=== PATIENT | male | born 1950 | race Caucasian/White ===

== ENCOUNTER 2017-04-21 08:51 | Inpatient (IN) | payer OTHER, MEDICARE ==
[~2017-04-21] VITALS: Ht 175.3 cm; Wt 86.7 kg
[2017-04-23] MEDS ORDERED: ACETAMINOPHEN TAB 650MG DOSE (2X325MG) PO PRN (14:15)
[2017-04-23] MEDS ORDERED: MAALOX 30 ML SUSP *UDC PO PRN (14:15)
[2017-04-23] MEDS ORDERED: MOM 30ML SUSPENSION UDC PO PRN (14:15)
[2017-04-23] MEDS ORDERED: FLEET ENEMA PR PRN (14:15)
[2017-04-23 16:30] VITALS: BP 158/90
[2017-04-23] MEDS ORDERED: ATOR80TA59 PO (17:17)
[2017-04-23] MEDS ORDERED: ELIQ5TAB PO (17:17)
[2017-04-23] MEDS ORDERED: KEPP1TAB PO (17:17)
[2017-04-23] MEDS ORDERED: DILA100C PO (17:17)
[2017-04-23] MEDS ORDERED: DILT300C43 PO (17:17)
[2017-04-23 20:30] VITALS: BP 121/80
[2017-04-23] MEDS: APIXABAN 5 MG TAB (ELIQUIS) PO SCH (21:15)
[2017-04-23] MEDS: PHENYTOIN ER 100 MG CAP PO SCH (21:15)
[2017-04-23] MEDS: levETIRAcetam 250MG TABLET (KEPPRA) PO SCH (21:15)
[2017-04-24 05:45] VITALS: BP 128/76
[2017-04-24 06:52] LABS: BASO % 0.7 % (0.0-1.0); EOS # 0.1 10^3/uL (0.0-0.50); EOS % 2.2 % (0.0-3.0); IMMATURE GRANULOCYTE % 0.3 % (0-0); LYMPH # 1.7 10^3/uL (1.5-4.5); LYMPH % 28.9 % (24.0-44.0); MEAN CORPUSCULAR HGB CONC 34.9 g/dl (32.0-36.5); MEAN CORPUSCULAR VOLUME 91.7 fl (80.0-96.0); MONO # 0.5 10^3/uL (0.0-0.8); MONO % 8.8 % (0.0-5.0); NEUTROPHILS # 3.5 10^3/uL (1.8-7.7); NEUTROPHILS % 59.1 % (36.0-66.0); PLATELET COUNT, AUTOMATED 197 10^3/uL (150-450); RED CELL DISTRIBUTION WIDTH 12.4 % (11.5-14.5); WHITE BLOOD COUNT 5.9 10^3/uL (4.0-10.0)
[2017-04-24 07:43] LABS: ALBUMIN 3.3 GM/DL (3.2-5.2); ALBUMIN/GLOBULIN RATIO 0.89 (1.00-1.93); ALKALINE PHOSPHATASE 102 U/L (45-117); ALT/SGPT 35 U/L (12-78); ANION GAP 7 MEQ/L (8-16); AST/SGOT 32 U/L (7-37); BILIRUBIN,TOTAL 0.5 MG/DL (0.2-1.0); BLOOD UREA NITROGEN 16 MG/DL (7-18); CALCIUM LEVEL 8.6 MG/DL (8.8-10.2); CARBON DIOXIDE LEVEL 23 MEQ/L (21-32); CHLORIDE LEVEL 111 MEQ/L (98-107); CREATININE FOR GFR 1.14 MG/DL (0.70-1.30); GLOMERULAR FILTRATION RATE > 60.0 (>49); GLUCOSE, FASTING 98 MG/DL (80-110); POTASSIUM SERUM 4.1 MEQ/L (3.5-5.1); SODIUM LEVEL 141 MEQ/L (136-145)
[2017-04-24] MEDS: APIXABAN 5 MG TAB (ELIQUIS) PO SCH ×2 (09:07→20:14)
[2017-04-24] MEDS: PHENYTOIN ER 100 MG CAP PO SCH ×2 (09:07→20:14)
[2017-04-24] MEDS: levETIRAcetam 250MG TABLET (KEPPRA) PO SCH ×2 (09:08→20:14)
[2017-04-24] MEDS: diltiaZEM **CD** 180 MG CAP PO SCH (09:08)
[2017-04-24] MEDS: ATORVASTATIN 20 MG TAB PO SCH (09:08)
[2017-04-24 14:00] VITALS: BP 144/82
--- NOTE | 2017-04-24 16:17 | PMRHPE ---
DATE OF ADMISSION: 04/23/2017 REASON FOR ADMISSION: Rehabilitation of left CVA with right hemiparesis, dysmetria, dysphagia, aphasia, dysarthria, and ataxia with some visual extinction from sudden onset 04/18/2017 related to atrial fibrillation and left basal ganglia and left occipital CVAs on imaging that have affected his dominant right upper extremity. HISTORY OF PRESENT ILLNESS: Patient is a 66-year-old white male who previously had been fairly healthy in spite of his chronic atrial fibrillation and prior seizure disorder. He had a seizure when he was a teenager and no recurrences since. However, on 04/18/2017, patient had sudden onset of right-sided weakness and aphasia with right facial droop and dysarthria. Patient was taken to [facility] and evaluated and found to have sustained a left basal ganglia and left occipital CVAs. Patient was found to have aphasia along with some ataxia, dysmetria, and hemiparesis affecting the right upper extremity as well as some extinction on double stimuli and his visual ennis on my examination today. He has, however, been able to progress and though I do not have evidence supporting it, has advanced from pureed and honey thickened liquids diet to reported regular diet. The last records I have support mechanical soft with nectar thickened liquids. 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 He will need to be able to handle several steps to get into the house and 13 steps inside the house and be minimum assist to modified independence in activities of daily living and mobility. PAST MEDICAL HISTORY: Includes: Atrial fibrillation with rapid ventricular response, the patient with recent episodes requiring IV beta blockers to control rates over 150 and this delayed transfer by 2 days. Seizure disorder, patient with no seizures since being a teenager and has been on dilantin and is now being tapered off dilantin in favor of Keppra. Other past medical history includes history of melanoma of the skin status post resection and history of basal cell carcinoma of the skin also post resection. SOCIAL HISTORY: The patient is and lives with his and, as noted above, is a retired schoolteacher and was independent in mobility, activities of daily living, and driving, and denies any smoking, alcohol, or tobacco usage. ALLERGIES: No known drug allergies. MEDICATIONS: On admission: - Tylenol 650 mg for pain or elevated temperature - Mylanta for dyspepsia - Eliquis 5 mg twice a day for clot prevention secondary to atrial fibrillation - atorvastatin 80 mg by mouth daily - diltiazem CD 300 mg daily - Keppra 500 mg twice a day for seizure prophylaxis - milk of magnesia 30 mL daily as needed for constipation - dilantin 100 mg twice a day for a week and then 100 mg daily for a week and then discontinue - Fleet enema one per rectum as needed for constipation Patient with no past surgical history. REVIEW OF SYSTEMS: Negative. PHYSICAL EXAMINATION: The patient is an average height, well-nourished, well-developed, late middle aged white male who looks approximately his stated age of 66, using glasses for visual correction and having balding on top. He is alert and well oriented and pleasant and cooperative to examination. VITAL SIGNS: Most recent are from [facility], temperature 98.2, blood pressure 116/75, pulse 82, respiratory rate 19, and patient is 95% saturated on room air. HEENT: Normocephalic except for right facial droop, atraumatic, balding on top, some graying of hair and nieves. Hearing is fairly good. No tenderness to the head or neck. Patient with what appears to be some thrush on the tongue and some other changes to the tongue, but otherwise oropharynx without lesions. Tongue does deviate to the right and speech is mildly dysarthric, some gurgling is heard as he is talking and patient does appear to have a little bit of word finding difficulty at times. Neck is supple. No carotid bruits are appreciated on auscultation. Thyroid was midline and normal. LUNGS: Clear in all ennis to auscultation. CORONARY: Shows an irregularly irregular rate and rhythm with 2/4 bilateral radial pulses going at about 70 beats per minute. ABDOMEN: Benign, nontender with no palpable masses and normal bowel sounds in all quadrants. EXTREMITIES: With functional range of motion of bilateral upper and lower extremities and mild weakness in the right upper extremity versus the left and very slight weakness in the right lower extremity versus the left with left motor being 5/5 and right being 4 to 4+ out of 5. NEUROLOGIC: Patient is alert and oriented times four. Speech, as noted above, is somewhat dysarthric and occasional word finding difficulty is noted, but overall fluent with appropriate language, reasonable amount of abstraction to his speech. Memory is grossly intact. Affect a little bit anxious, but in general pleasant and cooperative. [id number] normal on left and mildly diminished on the right. The patient with some difficulty reaching out to grasp my fingers in space with his right hand and mild difficulty in coordinating pushing and pulling with his right upper extremity. The patient with normal [id number] for the left on right lower extremity and a slight decrease for the right on the left. The patient able to transfer from sit to standing independently. He is not able to stand with his feet tight together, needing several inches of width. The patient with slight decrease of balance to the posterior when eyes closed and Rhomboids shows some right pronator drift. Light touch and vibration are intact in bilateral upper and lower extremities. Tone is within normal limits in bilateral upper and lower extremities. Deep tendon reflexes show 2/4 knee jerks, biceps and brachial radialis, 1/4 triceps and ankle jerks. ASSESSMENT/PLAN: 1. Rehabilitation of left CVAs in the basal ganglia occipital lobes with some apparent involvement of the left cerebellum affecting the principally right upper extremity as well as causing dysarthria, dysphagia, and aphasia. I will start patient in a program of physical, occupational, and speech therapy. I will start off at the mechanical soft and nectar thickened liquids diet for him until speech therapy are able to assess him and make recommendations on further advancement. The patient is not happy with this, but accepting. The patient needs neuromuscular facilitation of the right upper and lower extremity as well as balance and gait training. He is highly motivated and I anticipate will do well in a program with physical, occupational, and speech therapy involving 3 hours of therapy per day. 2. Atrial fibrillation. The patient is on 300 mg of diltiazem CD. This seems to be controlling his rate. We will continue to observe this. Medicine consult has been obtained. Patient will continue also with the atorvastatin as he has known left internal carotid artery plaques and with the Eliquis 5 mg twice a day to prevent emboli from the atrial fibrillation. 3. Seizure history. The patient's seizure is very remote, but will go ahead and continue the plan to taper him off of the more neurotoxic dilantin and continue the Keppra 500 mg twice a day. 4. I will go ahead and get a urinalysis, complete blood count (CBC), and complete metabolic panel (CMP) as baseline labs to monitor this patient. Medicine consult has been sent. POSTADMISSION PHYSICIAN EVALUATION: The patient is fairly consistent with preadmission screening. He does appear to be actually a little bit better which is related to, I believe, the 2 day delay because of the unregulated atrial fibrillation that is now under control. However, the patient does need significant work for safe swallowing, mobility, especially to compensate for the dysmetria and the ataxia, and slight balance disturbances that I found on today's examination. However, I think he is highly motivated and has a very supportive and I am anticipating no problem and a good prognosis for returning to home from doing the 3 hours of therapy per day with physical, occupational, and speech therapy. My estimated length of stay is 10 days. Time spent on chart review, history and physical (H and P), and documentation is greater than 70 minutes.
[2017-04-24 20:00] VITALS: BP 145/85
[2017-04-25] MEDS ORDERED: INFLUENZA VIRUS VACCINE HIGH DOSE 0.5 ML SYRINGE (90662) IM ONE (09:00)
[2017-04-25] MEDS ORDERED: PREVNAR 13 VACCINE SYRINGE (CPT CODE:90670) IM ONE (09:00)
[2017-04-25] MEDS: APIXABAN 5 MG TAB (ELIQUIS) PO SCH ×2 (09:09→20:27)
[2017-04-25] MEDS: ATORVASTATIN 20 MG TAB PO SCH (09:09)
[2017-04-25] MEDS: diltiaZEM **CD** 180 MG CAP PO SCH (09:11)
[2017-04-25] MEDS: levETIRAcetam 250MG TABLET (KEPPRA) PO SCH ×2 (09:11→20:27)
[2017-04-25] MEDS: PHENYTOIN ER 100 MG CAP PO SCH ×2 (09:12→20:27)
[2017-04-25 14:00] VITALS: BP 121/77
[2017-04-25 20:00] VITALS: BP 140/92
[2017-04-26 06:00] VITALS: BP 126/78
[2017-04-26] MEDS: levETIRAcetam 250MG TABLET (KEPPRA) PO SCH ×2 (09:00→20:18)
[2017-04-26] MEDS: APIXABAN 5 MG TAB (ELIQUIS) PO SCH ×2 (09:00→20:18)
[2017-04-26] MEDS: PHENYTOIN ER 100 MG CAP PO SCH ×2 (09:01→20:18)
[2017-04-26] MEDS: diltiaZEM **CD** 180 MG CAP PO SCH (09:01)
[2017-04-26] MEDS: ATORVASTATIN 20 MG TAB PO SCH (09:02)
--- NOTE | 2017-04-26 12:37 | CR.PDOC ---
[facility] Consultation Consultation CONSULTATION REPORT FOR: Dr Molina REASON FOR CONSULTATION: Medical Management DATE OF VISIT: 04/26/17 ATTENDING: Dr. Michael Cobos PCP: Dr Dunn Vmware Administrator: Dr Jennifer ABRAMS HPI: 66year oldM with a past medical history significant for PAF who was treated at [facility] for Left CVA with Rt hemiparesis, dysarthria and ataxia 04/18/17. Pt was transferred to the care of [facility] 04/23/17. No acute medical complaints today. The pt states he feels he is doing well. Still notices some unsteadiness. Denies any fevers, chills, weakness, fatigue, Headache, Chest Pain, Shortness of breath, cough, palpitations, abdominal pain, N/V/D or changes in bowel or bladder habits. PMHx/PSHx: PAF/flutter H/O seizure. Last seizure as teenager. H/O melanoma and basal cell CA/S/P resection. SOCHX: Marital Status: Employment: retired teacher Tobacco use: denies ETOH: denies Illicit Drugs: Denies ROS: As noted in HPI, otherwise 11pt ROS of systems reviewed and unremarkable. PE: GEN: 66yoM, appears stated age. Well-nourished, well developed. No acute distress. Alert and oriented x 3. Pleasant, interactive. HEENT: Normocephalic, atraumatic. Pupils are equal, round, and reactive to light. Extraocular movements are intact. No nystagmus appreciated. Sclera are nonicteric. Conjunctiva without injection. Nose midline. Nasal turbinates without bogginess. EACs both patent BL. TMs both visualized and nolan with good cone of light, no bulging or erythema. No facial asymmetry. Moist mucous membranes. Dentition fair. Pharynx pink and moist, no cobblestoning. Neck supple , trachea midline. No lymphadenopathy or thyromegaly appreciated. CHEST: Irreg irreg, +S1, +S2 LUNGS: Clear to auscultation bilaterally. No wheezes, rales, or rhonchi. Breathing appears symmetric and easy. Patient is speaking in full sentences. No accessory muscle use. ABD: Round, soft, non-tender, non-distended. +Bowel sounds throughout. No rebound or guarding. No costovertebral angle tenderness. EXT: Pulses 2+ bilaterally dorsalis pedis and radial. No lower extremity edema appreciated. SKIN: [place], dry, warm. Capillary refill <2sec. No rashes. NEURO: Alert and oriented x 3. mild dysarthria noted. Rt sided weakness. A&P: 66year oldM with a past medical history significant for PAF who was treated at [facility] for Left CVA with Rt hemiparesis, dysarthria and ataxia 04/18/17. Pt was transferred to the care of [facility] 04/23/17. 1. S/P CVA with Rt hemiparesis/dysarthria, ataxia. MRI Brain 04/09/17 [facility] small infarcts left basal ganglia and left occipital lobe. CTA Head and Neck [facility] 04/09/17 small ulcerative plaque Lt ICA origin. no significant stenosis neck. Chronic Lt M1 occlusion with collaterals. Lipitor/Eliquis. PT/OT/ST as per Dr Molina. Bowel care as per Dr Molina. DVT prophylaxis. Pt is on Eliquis. Outpt f/u with Neurology. 2. PAF. Seen by Cardiology [facility]. Plan for outpt f/u. Possibly consider ablation procedure. TTE [facility] 04/19/17 SR, EF 50%, nml Lt and Rt atrial size. Rate control with Diltiazem. 60s-70s. Pt is on Eliquis 5 mg po BID. 3. H/O Seizure. Pt remains on Dilantin taper 100mg BID x 7 days, daily x 7 days then d/c as per Neurology [facility]. ( This was related to Dilantin reducing effect of Eliquis). Keppra 500mg po BID. No seizure activity. Outpt F/U with Neurology. Monitor. Thank you for your consultation. We will continue to follow along with you. Vital Signs/I&O Vital Signs Date Time Temp Pulse Resp B/P (MAP) Pulse Ox O2 Delivery O2 Flow Rate FiO2 04/26/17 09:01 65 126/78 04/26/17 06:00 98.5 18 99 Room Air Laboratory Data Labs 24H Item Value Date Time White Blood Count 5.9 10^3/uL 04/24/17 0620 Red Blood Count 4.84 10^6/uL 04/24/17 0620 Hemoglobin 15.5 g/dl 04/24/1720 Hematocrit 44.4 % 04/24/1720 Mean Corpuscular Volume 91.7 fl 04/24/1720 Mean Corpuscular Hemoglobin 32.0 pg 04/24/1720 Mean Corpuscular Hemoglobin Concent 34.9 g/dl 04/24/1720 Red Cell Distribution Width 12.4 % 04/24/17619 Platelet Count 197 10^3/uL 04/24/17 0620 Sodium Level 141 MEQ/L 04/24/17 0620 Potassium Level 4.1 MEQ/L 04/24/1720 Chloride Level 111 MEQ/L H 04/24/17 0620 Carbon Dioxide Level 23 MEQ/L 04/24/1720 Anion Gap 7 MEQ/L L 04/24/1720 Blood Urea Nitrogen 16 MG/DL 04/24/1720 Creatinine 1.14 MG/DL 04/24/1720 Glomerular Filtration Rate > 60.0 04/24/1720 Fasting Glucose 98 MG/DL 04/24/17 0620 Calcium Level 8.6 MG/DL L 04/24/1720 Total Bilirubin 0.5 MG/DL 04/24/17 0620 Aspartate Amino Transf (AST/SGOT) 32 U/L 04/24/1720 Alanine Aminotransferase (ALT/SGPT) 35 U/L 04/24/17 0620 Alkaline Phosphatase 102 U/L 04/24/1720 Total Protein 7.0 GM/DL 04/24/1720 Albumin 3.3 GM/DL 04/24/1720 Albumin/Globulin Ratio 0.89 L 04/24/17 0620 Allergies Coded Allergies: No Known Allergies (Unverified , 04/23/17) Home Medications Scheduled Apixaban Base (Eliquis) 5 Mg Tab, 5 MG PO BID, (Reported) Atorvastatin Calcium (Atorvastatin Calcium) 80 Mg Tab, 80 MG PO DAILY, (Reported ) Diltiazem HCl (Diltiazem Cd) 300 Mg Cap, 300 MG PO DAILY, (Reported) Levetiracetam (Keppra) 500 Mg Tab, 500 MG PO BID, (Reported) Phenytoin Sodium (Dilantin) 100 Mg Cap, 100 MG PO BID, (Reported) Verito Chapman Apr 26, 2017 12:37
[2017-04-26 14:00] VITALS: BP 111/66
[2017-04-26 20:00] VITALS: BP 124/66
[2017-04-27 06:00] VITALS: BP 110/63
[2017-04-27] MEDS: levETIRAcetam 250MG TABLET (KEPPRA) PO SCH ×2 (08:19→20:37)
[2017-04-27] MEDS: ATORVASTATIN 20 MG TAB PO SCH (08:19)
[2017-04-27] MEDS: diltiaZEM **CD** 180 MG CAP PO SCH (08:20)
[2017-04-27] MEDS: PHENYTOIN ER 100 MG CAP PO SCH ×2 (08:20→20:37)
[2017-04-27] MEDS: APIXABAN 5 MG TAB (ELIQUIS) PO SCH ×2 (08:21→20:38)
[2017-04-27] MEDS ORDERED: BISACODYL 5 MG TAB PO PRN (10:30)
[2017-04-27 14:00] VITALS: BP 127/70
[2017-04-27] MEDS ORDERED: BISACODYL 5 MG TAB PO ONE (15:00)
--- NOTE | 2017-04-27 16:41 | IPNPDOC ---
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 Patient with dysarthria, dysphasia, aphasia, dysmetria of right upper extremity and some right-sided ataxia they're affecting his dominant right side. Patient currently in physical, occupational and speech therapies working on these deficits. Patient does note some anxiousness and that when he becomes anxious that his performance especially in word finding and speech clarity and fluency markedly decrease at those time. Similarly right upper and lower extremity placement which affects safety and function and mobility and ADLs respectively will also decline. Otherwise at this time patient without complaints. ALLERGIES: See Below MEDICATIONS: Reviewed, see below. OBJECTIVE: VITAL SIGNS: Please see below. PHYSICAL EXAMINATION: GENERAL: Well-nourished well-developed late middle-age white male who is alert and well oriented with notable improvement in his dysarthria since Wednesday. HEENT: Mild right facial droop and tongue deviation which have also improved since Wednesday. Extraocular motions are intact. CARDIOVASCULAR: Irregularly irregular with 2/4 bilateral radial pulses about 70 bpm. LUNGS: All ennis clear to auscultation. ABDOMEN: Benign with normal bowel sounds in all quadrants. NEUROLOGICAL: Patient is alert and oriented 4. Speech with minimal dysarthria during most of my visit, however when distracted by speech therapy patient then started having word finding and dysarthria problems. This appears to be patient over thinking as opposed to being relaxed. Memory is good. Motor still some dysmetria but markedly improved from Wednesday for both the upper and lower extremity on the right. However when distracted or stress this increases and patient's safety be comes more compromised. SKIN: Grossly intact. LABORATORY DATA: Reviewed. Please see below. MICROBIOLOGY: Please see below. IMAGING: No new images. DVT prophylaxis ordered?: Mike. ASSESSMENT AND PLAN: 1. Rehabilitation of left CVA with right dominant side sensorimotor deficits, aphasia, dysphasia and dysarthria: Patient has been showing significant gains in the course of treatment with physical, occupational and speech therapies since admission on Wednesday04/23/17 patient is particularly improved on his mobility and ADLs though some elements of the ataxia/dysmetria markedly increase whenever patient gets worried her anxious which compromises some of his safety and level of function. Therefore feel patient needs a bit of overtraining in this, especially to increase his confidence and decrease a anxiety that could put him in a more dangerous position if discharged to soon. 2. Atrial fibrillation: Rate is being well controlled along with blood pressure. Eliquis will be used for clot prevention. 3. Seizure prophylaxis: Patient is progressing off of Dilantin and at this time seems to tolerate Keppra without problems. There have been no signs of a seizure activity since admission to [facility]U. REHAB. TEAM ROUNDS: Patient is doing very well except when he becomes anxious. To better prepare him for home, I will start room privileges and then have patient use the apartment to check his level of function on night into Wednesday with discharge to home plan for Wednesday04/30/17. Please see attached therapy notes below. TIME SPENT: Chart Review, examination and documentation require greater than 25 minutes. Patient: Kennedy Bernstein : 1950 Age/Sex: 66/M Unit#: [id number] Room/Bed: M4147/01 User: Kailee Shahid OT [facility] SOY Date: 04/27/17 14:58 Type: OT Progress Time In * 14:35 Time Out * 14:52 OT Treatment Time-Minutes * 17 mins Type of Therapy Provided * Individual Precautions * Fall Unit * Acute Inpatient Rehab Pain Comment * No c/o pain this session. Subjective * Pt received for session seated at EOB, pleasant and agreeable to OT session. Cognition * Within Normal Limits Cognition Comments * No significant cognitive deficits noted. Bed Mobility Notes * oob t/o session Sit to Stand * Modified Independent Stand to Sit * Modified Independent Functional Transfer Notes: * Pt perf sit<>stand and ambulated room <> gym independently. Sit-Static * G Sit-Dynamic * G Stand-Static * G Stand-Dynamic * F+ Balance Training Note * Standing balance observed during ambulation, sitting at EOB and edge of mat table OT Intervention Note * Written home exercise given and reviewed with pt this date. Pt provided with visual demo of each exercise and rehearsed performing the exercises in therapy demonstrating good form and understanding of program. Pt left in room at end of session with all needs met. Patient: Kennedy Bernstein : 1950 Age/Sex: 66/M Unit#: [id number] Room/Bed: M4147/01 User: Yuliya Jacome OT OT Date: 04/27/17 15:30 Type: OT Progress Time In * 07:10 Time Out * 08:05 OT Treatment Time-Minutes * 55 mins Type of Therapy Provided * Individual Precautions * Fall Unit * Acute Inpatient Rehab Pain Comment * No c/o pain this session. Subjective * Pt supine upon OT arrival, agreeable to tx. Cognition * Within Normal Limits Cognition Comments * A&Ox3, polite and cooperative throughout tx. Supine to Sit * Independent Sit to Supine * Independent Rolling * Independent Bed Mobility Notes * Independent with all bed mobility. Sit to Stand * Independent Stand to Sit * Independent Bed to Chair * Independent Chair to Bed * Independent Toilet/Commode * Independent Shower/Tub * Modified Independent Functional Transfer Notes: * Pt perf sit<>stand and ambulated room <> training bathroom independently with no AD. Tub transfer completed with use of grab bars for safety. Bathing * Modified Independent Dressing-Upper Body * Independent Dressing-Lower Body * Independent Grooming * Independent Toileting * Independent Eating * Independent ADL Training Note * Pt gathered all clothing and ambulated to training shower. Pt completed bathing while seated on shower chair/standing only to wash luis/buttocks. Pt then stepped out of shower, mod I and completed dressing from chair level. UB dressing- independently in standing. LB dressing- pt able to thread BLE into underwear, pants, and socks, as well as standing to pull up and fasten jeans/belt. Pt donned B shoes and tied them independently as well. Toileting completed independently. Pt returned to room and completed grooming independently at sink. Pt began eating breakfast independently. A. Eating (include only those with PO intake): * 06.Independent Eating Comments: * See ADL note. B. Oral Hygiene (includes gums in edentulous pts): * 06.Independent Oral Hygiene Comments: * See ADL note. C. Toileting Hygiene (not transfers): * 04.Sup/Touch Assist E. Shower/Bathe Self (not transfers, can be sponge bath): * 06.Independent Shower/Bathe Self Comments: * See ADL note. F. Upper Body Dressing (includes bra, not hospital gown): * 06.Independent Upper Body Dressing Comments: * See ADL note. G. Lower Body Dressing (includes briefs and knee braces): * 06.Independent Lower Body Dressing Comments: * See ADL note. H. Putting on/taking off footwear (includes TEDS and AFO): * 06.Independent Putting on/taking off footwear Comments: * See ADL note. Sit-Static * G Sit-Dynamic * G Stand-Static * G Stand-Dynamic * F+ Balance Training Note * Standing balance observed during ambulation, sitting at EOB and edge of mat table OT Intervention Note * See ADL note above. Following ADL, pt returned to EOB and began eating breakfast independently. All needs met, call light in reach. Pt does have room privilages at this time. OT Goal Note * Pt has met all OT goals at this time. Discharge Recommendations * Home Safe for discharge at this time * Yes Patient: Kennedy Bernstein Jordan : 1950 Age/Sex: 66/M Unit#: [id number] Room/Bed: M4147/01 User: April Velasquez, EYAL [facility] PT Date: 04/27/17 14:30 Type: PT Progress Note Time In * 09:30 Time Out * 10:30 PT Treatment Time-Minutes * 60 mins Type of Therapy Provided * Individual Precautions * Fall Unit * Acute Inpatient Rehab Pain Start of Session * 0 Pain End of Session * 0 Pain Comment * No c/o pain Subjective * Pt reports feels more tired than usual (before CVA) slept 9 hours and felt as if needed at least that much. Willing to participate Cognition * Within Normal Limits Cognition Comments * Speech was fast at times however patient self corrects. Supine to Sit * Independent Sit to Supine * Independent Rolling * Independent Bed Mobility Notes * Independent with all bed mobility. Sit to Stand * Independent Stand to Sit * Independent Bed to Chair * Not Tested Chair to Bed * Not Tested Toilet/Commode * Not Tested Transfer Training Notes * Independent with transfers. Sit-Static * G Sit-Dynamic * G Stand-Static * G Stand-Dynamic * G- Balance Training Note * 30 min balance activities. Grid patterns, toe touch on 8" step, single leg stance activities in parallel bars, curb, uneven surfaces (grass) Ambulation Distance * 500 Feet Ambulation Level of Assist * Modified Independent Assistive Device Used * Gait Belt Gait Training Note * pt amb 500' without AD, wide base of support, occ right heel not fully clearing floor or surface but able to self correct, Dec speed of ambulation and slight balance deficits which pt self corrects. Wheelchair Mobility Level of Assist * Not Tested Number of Stairs Completed * 14 Stairs Railing * Yes Railing Side * Left Level of Assist for Stairs * Modified Independent Stair Training Note * due to safety, railing is recommended A. Roll Left and Right: * 06.Independent B. Sit to Lying: * 06.Independent C. Lying to Sitting on Side of Bed: * 06.Independent D. Sit to Stand: * 06.Independent E. Chair/Ore-gi-Bxouk Transfer: * 88.Not Attempted F. Toilet Transfer: * 88.Not Attempted G. Car Transfer: * 88.Not Attempted H. Does the patient walk?: * 2. Yes I. Walk 10 Feet: * 06.Independent J. Walk 50' with Two Turns: * 06.Independent K. Walk 150 Feet: * 06.Independent L. Walking 10' on uneven surfaces: * 88.Not Attempted Walking 10' on uneven surfaces Comments: * Amb on carpeted surface and ramp for progression of amb M. 1 Step (curb): * 05.Setup/clean up Asst N. 4 Steps (with or without railing): * 05.Setup/clean up Asst O. 12 Steps (with or without railing): * 05.Setup/clean up Asst P. Picking up Object from the Floor (from a standing): * 04.Sup/Touch Assist Q. Does the patient use a w/c (other than just transport): * 0. No Lower Extremity Exercised * Bilateral Sitting Exercises * Long Arc Quads * Marching * Hip Abduction * Hip Adduction * Ankle Pumps * Other Number of Reps Sitting * 15-20 Reps Standing Exercises * Other PT Interventions * Gait Training * Therapeutic Excercise * Functional Training * Bed Mobility * Balance Activities * Safety/Precautions * HEP * Pt./Family Education * D/C Needs * Neuro Re-Education PT Progress Note * Patient continues to have difficulty with higher level balance activities. supervision provided with amb on uneven surfaces and for steps/curb w/o UE support. Balance improves with practice with individual activities. Right LE proprioception diminished with pt hitting right foot on step initially and requiring visual feedback to correct. Improves with practice. Discharge Recommendations * Home Safe for discharge at this time * No Patient: Kennedy Bernstein : 1950 Age/Sex: 66/M Unit#: [id number] Room/Bed: [place] [address] User: April Velasquez PT [facility] PT Date: 04/27/17 14:43 Type: PT Progress Note Time In * 13:55 Time Out * 14:25 PT Treatment Time-Minutes * 30 mins Type of Therapy Provided * Individual Precautions * Fall Unit * Acute Inpatient Rehab Pain Start of Session * 0 Pain End of Session * 0 Pain Comment * No c/o pain Subjective * Pt willing to participate. States is a bit tired this afternoon. Cognition * Within Normal Limits Cognition Comments * Speech was fast at times however patient self corrects. Supine to Sit * Independent Sit to Supine * Independent Rolling * Independent Bed Mobility Notes * Independent with all bed mobility. Sit to Stand * Independent Stand to Sit * Independent Bed to Chair * Not Tested Chair to Bed * Not Tested Toilet/Commode * Not Tested Transfer Training Notes * Independent with transfers. Sit-Static * G Sit-Dynamic * G Stand-Static * G Stand-Dynamic * G- Balance Training Note * 20 min balance activities. Grid patterns, hurdles 7 x3, single leg stance activities in parallel bars, stooping and floor transfers w/o UE support Ambulation Distance * 500 Feet Ambulation Level of Assist * Modified Independent Assistive Device Used * Gait Belt Gait Training Note * pt amb 500' without AD, wide base of support, occ right heel not fully clearing floor or surface but able to self correct, Dec speed of ambulation and Occ side sway which pt is able to self correct. Wheelchair Mobility Level of Assist * Not Tested Number of Stairs Completed * 0 Stairs Railing * Yes Railing Side * Left Level of Assist for Stairs * Modified Independent Stair Training Note * due to safety, railing is recommended A. Roll Left and Right: * 06.Independent B. Sit to Lying: * 06.Independent C. Lying to Sitting on Side of Bed: * 06.Independent D. Sit to Stand: * 06.Independent E. Chair/Cfc-yu-Lzsdd Transfer: * 88.Not Attempted F. Toilet Transfer: * 88.Not Attempted G. Car Transfer: * 88.Not Attempted H. Does the patient walk?: * 2. Yes I. Walk 10 Feet: * 06.Independent J. Walk 50' with Two Turns: * 06.Independent K. Walk 150 Feet: * 06.Independent L. Walking 10' on uneven surfaces: * 88.Not Attempted M. 1 Step (curb): * 88.Not Attempted N. 4 Steps (with or without railing): * 88.Not Attempted O. 12 Steps (with or without railing): * 88.Not Attempted P. Picking up Object from the Floor (from a standing): * 05.Setup/clean up Asst Picking up Object from the Floor (from standing) Comments: * picking up pen from floor x 2 w/o assistive device or support of furniture Q. Does the patient use a w/c (other than just transport): * 0. No Lower Extremity Exercised * Bilateral Other Sitting Exercises * chair to floor to stand - pt able to perform with supervision for safety. Some difficulty getting right LE into 90/90 position and getting to stand w/o object of support Number of Reps Sitting * 15-20 Reps Standing Exercises * Other Therapeutic Exercises Note * Patient demonstrates all activity with no immediate adverse effects. PT Interventions * Gait Training * Therapeutic Excercise * Functional Training * Bed Mobility * Balance Activities * Safety/Precautions * HEP * Pt./Family Education * D/C Needs * Neuro Re-Education PT Progress Note * Patient continues to have difficulty with higher level balance activities. supervision provided with amb on uneven surfaces and for steps/curb w/o UE support. Balance improves with practice with individual activities. Right LE proprioception diminished with pt hitting right foot on hurdles initially and requiring visual feedback to correct. Improves with practice. Single leg stance in right more difficult than left. Less difficulty with grid patterns this PM Discharge Recommendations * Home Discharge Comment * outpatient PT Safe for discharge at this time * No Patient: Kennedy Bernstein : 1950 Age/Sex: 66/M Unit#: [id number] Room/Bed: M4147/01 User: Gerard Buchanan Ssv SP Date: 04/25/17 10:23 Type: ST Mora Cognitive Lingusti... Exercise Education Label * Executive Function * Other Cognitive Linguistic Visual Scanning/Visual Perceptual skills * Level of Assistance Minimum Assist Inconsistently Multi-modality Cues * Level of Assistance Comment Intermittent verbal prompt to attend to object to cross out, L-R scan, * Tolerance Good * Therapeutic Exercise Compensatory Strategies Pt/Family Education * Therapeutic Exercise Comment handouts provided at [facility] Patient: Kennedy Bernstein Jordan : 1950 Age/Sex: 66/M Unit#: [id number] Room/Bed: M4147/01 User: St Xochitl Little SP Date: 04/27/17 15:58 Type: ST Mora-Motor Speech Exerc... Exercise Education Label * Multisyllabic Drill Oral Motor Exercise Over-Articulation Range of Motion Exercises * Other Motor Speech Exercise Backwards chaining, pacing w/ hand tapping, syllable segmentation * Measure Discussed functional goals for d/c to home * Level of Assistance Minimum Assist Distractable Multi-modality Cues * Level of Assistance Comment Min verbal cues and clinician models. Self-monitors and corrects well. * Tolerance Excellent * Therapeutic Exercise Yes Pt/Family Education * Therapeutic Exercise Comment Supervising P[employer]IVER present, agrees w/ tx and outcomes. MS Sharifa, CCC-PICK UP TR[employer] DRIVER. Allergies Coded Allergies: No Known Allergies (Unverified , 04/23/17) Vital Signs Vital Signs Date Time Temp Pulse Resp B/P (MAP) Pulse Ox O2 Delivery O2 Flow Rate FiO2 04/27/17 14:00 97.9 54 18 127/70 (89) 99 Room Air 97.9 Current Medications Current Medications Current Medications Acetaminophen (Tylenol Tab) 650 mg Q6HP PRN PO PAIN OR TEMP > 101; Start at 14:15; Stop 05/23/17 at 14:14 Al Hydrox/Mg Hydrox/Simethicone (Mylanta) 30 ml Q4HP PRN PO DYSPEPSIA; Start 04/23/17 at 14:15; Stop 05/23/17 at 14:14 Apixaban (Eliquis) 5 mg BID PO Last administered on 04/27/17 08:21; Start 04/23/17 at 21:00; Stop 04/30/17 at 20:59 Atorvastatin Calcium (Lipitor) 80 mg DAILY PO Last administered on 04/27/17 08 :19; Start 04/24/17 at 09:00; Stop 05/24/17 at 08:59 Bisacodyl (Dulcolax Tab) 10 mg DAILYPRN PRN PO CONSTIPATION; Start 04/27/17 at 10:30; Stop 05/27/17 at 10:29 Diltiazem HCl (Cardizem Cd) 120 mg DAILY PO Last administered on 04/27/17 08: 20; Start 04/24/17 at 09:00; Stop 05/24/17 at 08:59 Diltiazem HCl (Cardizem Cd) 180 mg DAILY PO Last administered on 04/27/17 08: 20; Start 04/24/17 at 09:00; Stop 05/24/17 at 08:59 Home Med (Med Rec Complete!) ASDIRECTED XX ; Start 04/23/17 at 17:30; Stop 04/23/17 at 17:30; Status DC Levetiracetam (Keppra) 500 mg BID PO Last administered on 04/27/17 08:19; Start 04/23/17 at 21:00; Stop 05/23/17 at 20:59 Magnesium Hydroxide (Milk Of Magnesia) 30 ml DAILYPRN PRN PO CONSTIPATION; Start 04/23/17 at 14:15; Stop 05/23/17 at 14:14 Phenytoin (Dilantin) 100 mg BID PO Last administered on 04/27/17 08:20; Start 04/23/17 at 21:00; Stop 04/29/17 at 23:55 Phenytoin (Dilantin) 100 mg DAILY@0600 PO ; Start 04/30/17 at 06:00; Stop 04/06 at 05:59 Sodium Biphosphate/ Sodium Phosphate (Fleet Enema) 1 ea DAILYPRN PRN [place] CONSTIPATION; Start 04/23/17 at 14:15; Stop 05/23/17 at 14:14 KIZZY GIL MD Apr 27, 2017 16:41
[2017-04-27 20:00] VITALS: BP 132/73
[2017-04-28 06:00] VITALS: BP 131/63
[2017-04-28] MEDS: levETIRAcetam 250MG TABLET (KEPPRA) PO SCH ×2 (08:48→20:13)
[2017-04-28] MEDS: APIXABAN 5 MG TAB (ELIQUIS) PO SCH ×2 (08:48→20:14)
[2017-04-28] MEDS: ATORVASTATIN 20 MG TAB PO SCH (08:49)
[2017-04-28] MEDS: diltiaZEM **CD** 180 MG CAP PO SCH (08:49)
[2017-04-28] MEDS: PHENYTOIN ER 100 MG CAP PO SCH ×2 (08:50→20:14)
[2017-04-28 14:00] VITALS: BP 144/67
--- NOTE | 2017-04-28 15:46 | IPNPDOC ---
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 Patient with dysarthria, dysphasia, aphasia, dysmetria of right upper extremity and some right-sided ataxia they're affecting his dominant right side. Patient currently in physical, occupational and speech therapies working on these deficits. Patient does note some anxiousness and that when he becomes anxious that his performance especially in word finding and speech clarity and fluency markedly decrease at those time. Similarly right upper and lower extremity placement which affects safety and function and mobility and ADLs respectively will also decline. Otherwise at this time patient without complaints. ALLERGIES: See Below MEDICATIONS: Reviewed, see below. OBJECTIVE: VITAL SIGNS: Please see below. PHYSICAL EXAMINATION: GENERAL: Well-nourished well-developed late middle-age white male who is alert and well oriented with notable improvement in his dysarthria since Wednesday. HEENT: Mild right facial droop and tongue deviation which have also improved since Wednesday. Extraocular motions are intact. CARDIOVASCULAR: Irregularly irregular with 2/4 bilateral radial pulses about 60- 70 bpm. LUNGS: All ennis clear to auscultation. ABDOMEN: Benign with normal bowel sounds in all quadrants. NEUROLOGICAL: Patient is alert and oriented 4. Speech with minimal dysarthria during most of my visit, however when distracted by speech therapy patient then started having word finding and dysarthria problems. This appears to be patient over thinking as opposed to being relaxed. Memory is good. Motor still some dysmetria but markedly improved from Wednesday for both the upper and lower extremity on the right. SKIN: Grossly intact. LABORATORY DATA: Reviewed. Please see below. MICROBIOLOGY: Please see below. IMAGING: No new images. DVT prophylaxis ordered?: Mike. ASSESSMENT AND PLAN: 1. Rehabilitation of left CVA with right dominant side sensorimotor deficits, aphasia, dysphasia and dysarthria: Patient has been showing significant gains in the course of treatment with physical, occupational and speech therapies since admission on Wednesday04/23/17 patient is particularly improved on his mobility and ADLs though some elements of the ataxia/dysmetria markedly increase whenever patient gets worried her anxious which compromises some of his safety and level of function. Therefore feel patient needs a bit of overtraining in this, especially to increase his confidence and decrease a anxiety that could put him in a more dangerous position if discharged too soon. We will discharge to home plan for Wednesday04/30/17 as he is having less stress impairment in function today and [facility] services are not readily available near his home, which he needs. Please see attached therapy notes below. 2. Atrial fibrillation: Rate is being well controlled along with blood pressure. Eliquis will be used for clot prevention. 3. Seizure prophylaxis: Patient is progressing off of Dilantin and at this time seems to tolerate Keppra without problems. There have been no signs of a seizure activity since admission to [facility]. REHAB. TEAM ROUNDS: Patient is doing very well except when he becomes anxious. To better prepare him for home, I will start room privileges and then have patient use the apartment to check his level of function on night into Wednesday with discharge to home plan for Wednesday04/30/17. Please see attached therapy notes below. TIME SPENT: Chart Review, examination and documentation require greater than 25 minutes. Patient: Kennedy Bernstein : 1950 Age/Sex: 66/M Unit#: [id number] Room/Bed: M4147/01 User: Yuliya Jacome OT OT Date: 04/28/17 14:12 Type: OT Progress Time In * 08:40 Time Out * 09:35 OT Treatment Time-Minutes * 55 mins Type of Therapy Provided * Individual Unit * Acute Inpatient Rehab Pain Comment * No c/o pain Subjective * Pt standing in room, talking with RN upon OT arrival. Pt reports he completed dressing, toileting, and grooming independently this am prior to OT with no concerns noted. Cognition * Within Normal Limits Sit to Stand * Independent Stand to Sit * Independent Bed to Chair * Independent Chair to Bed * Independent Functional Transfer Notes: * Independent with all ADL transfers. Dressing-Upper Body * Independent Dressing-Lower Body * Independent Grooming * Independent Toileting * Independent Eating * Independent ADL Training Note * Pt completed all ADLs prior to tx independently. No AD/DME required. A. Eating (include only those with PO intake): * 06.Independent Eating Comments: * See ADL note. B. Oral Hygiene (includes gums in edentulous pts): * 06.Independent Oral Hygiene Comments: * See ADL note. C. Toileting Hygiene (not transfers): * 06.Independent Toileting Hygiene Comments: * See ADL note. F. Upper Body Dressing (includes bra, not hospital gown): * 06.Independent Upper Body Dressing Comments: * See ADL note. G. Lower Body Dressing (includes briefs and knee braces): * 06.Independent Lower Body Dressing Comments: * See ADL note. H. Putting on/taking off footwear (includes TEDS and AFO): * 06.Independent Putting on/taking off footwear Comments: * See ADL note. Sit-Static * G Sit-Dynamic * G Stand-Static * G Stand-Dynamic * G Balance Training Note * Independent with all functional mobility. OT Intervention Note * RN present to deliver medications. Pt then completed med management independently. He was able to state what medications he does take and why, as well as open all packages and take meds. Pt then ambulated to kitchen. Pt reports he does not complete cooking/cleaning tasks at home mostly, but does occasionally assist with washing dishes. Pt completed activity to wash/dry and put away dishes in kitchen, independently with no rest break required. Pt then ambulated to gym independently and completed BUE ergometer in standing with moderate resistance to increase strength and endurance for ADL routines. Pt ambulated back to room independently and returned to chair at bedside. Pt encouraged to remain OOB to increase overall strength and endurance to return to PLOF. All needs met. OT Goal Note * Pt has met all OT goals at this time. Discharge Recommendations * Home Safe for discharge at this time * Yes Patient: eKnnedy Bernstein : 1950 Age/Sex: 66/M Unit#: [id number] Room/Bed: M4147/01 User: April Velasquez, PT Sk PT Date: 04/27/17 14:43 Type: PT Progress Note Time In * 13:55 Time Out * 14:25 PT Treatment Time-Minutes * 30 mins Type of Therapy Provided * Individual Precautions * Fall Unit * Acute Inpatient Rehab Pain Start of Session * 0 Pain End of Session * 0 Pain Comment * No c/o pain Subjective * Pt willing to participate. States is a bit tired this afternoon. Cognition * Within Normal Limits Cognition Comments * Speech was fast at times however patient self corrects. Supine to Sit * Independent Sit to Supine * Independent Rolling * Independent Bed Mobility Notes * Independent with all bed mobility. Sit to Stand * Independent Stand to Sit * Independent Bed to Chair * Not Tested Chair to Bed * Not Tested Toilet/Commode * Not Tested Transfer Training Notes * Independent with transfers. Sit-Static * G Sit-Dynamic * G Stand-Static * G Stand-Dynamic * G- Balance Training Note * 20 min balance activities. Grid patterns, hurdles 7 x3, single leg stance activities in parallel bars, stooping and floor transfers w/o UE support Ambulation Distance * 500 Feet Ambulation Level of Assist * Modified Independent Assistive Device Used * Gait Belt Gait Training Note * pt amb 500' without AD, wide base of support, occ right heel not fully clearing floor or surface but able to self correct, Dec speed of ambulation and Occ side sway which pt is able to self correct. Wheelchair Mobility Level of Assist * Not Tested Number of Stairs Completed * 0 Stairs Railing * Yes Railing Side * Left Level of Assist for Stairs * Modified Independent Stair Training Note * due to safety, railing is recommended A. Roll Left and Right: * 06.Independent B. Sit to Lying: * 06.Independent C. Lying to Sitting on Side of Bed: * 06.Independent D. Sit to Stand: * 06.Independent E. Chair/[id number] Transfer: * 88.Not Attempted F. Toilet Transfer: * 88.Not Attempted G. Car Transfer: * 88.Not Attempted H. Does the patient walk?: * 2. Yes I. Walk 10 Feet: * 06.Independent J. Walk 50' with Two Turns: * 06.Independent K. Walk 150 Feet: * 06.Independent L. Walking 10' on uneven surfaces: * 88.Not Attempted M. 1 Step (curb): * 88.Not Attempted N. 4 Steps (with or without railing): * 88.Not Attempted O. 12 Steps (with or without railing): * 88.Not Attempted P. Picking up Object from the Floor (from a standing): * 05.Setup/clean up Asst Picking up Object from the Floor (from standing) Comments: * picking up pen from floor x 2 w/o assistive device or support of furniture Q. Does the patient use a w/c (other than just transport): * 0. No Lower Extremity Exercised * Bilateral Other Sitting Exercises * chair to floor to stand - pt able to perform with supervision for safety. Some difficulty getting right LE into 90/90 position and getting to stand w/o object of support Number of Reps Sitting * 15-20 Reps Standing Exercises * Other Therapeutic Exercises Note * Patient demonstrates all activity with no immediate adverse effects. PT Interventions * Gait Training * Therapeutic Excercise * Functional Training * Bed Mobility * Balance Activities * Safety/Precautions * HEP * Pt./Family Education * D/C Needs * Neuro Re-Education PT Progress Note * Patient continues to have difficulty with higher level balance activities. supervision provided with amb on uneven surfaces and for steps/curb w/o UE support. Balance improves with practice with individual activities. Right LE proprioception diminished with pt hitting right foot on hurdles initially and requiring visual feedback to correct. Improves with practice. Single leg stance in right more difficult than left. Less difficulty with grid patterns this PM Discharge Recommendations * Home Discharge Comment * outpatient PT Safe for discharge at this time * No Patient: Kennedy Bernstein : 1950 Age/Sex: 66/M Unit#: [id number] Room/Bed: M4147/01 User: St Xochitl Little Date: 04/28/17 11:39 Type: ST Mora-Motor Speech Exerc... Exercise Education Label * Multisyllabic Drill Oral Motor Exercise Over-Articulation Range of Motion Exercises * Measure Increase in FIMs for memory today * Level of Assistance Minimum Assist * Level of Assistance Comment Intermittent verbal cues & clinician models for overartic & slow rate * Tolerance Excellent * Therapeutic Exercise Yes Pt/Family Education * Therapeutic Exercise Comment Supervising [facility] present, agrees w/ tx and outcomes. MS Sharifa, CCC-[facility]. Allergies Coded Allergies: No Known Allergies (Unverified , 04/23/17) Vital Signs Vital Signs Date Time Temp Pulse Resp B/P (MAP) Pulse Ox O2 Delivery O2 Flow Rate FiO2 04/28/17 14:00 97.7 52 18 144/67 (92) 92 Room Air Current Medications Current Medications Current Medications Acetaminophen (Tylenol Tab) 650 mg Q6HP PRN PO PAIN OR TEMP > 101; Start at 14:15; Stop 05/23/17 at 14:14 Al Hydrox/Mg Hydrox/Simethicone (Mylanta) 30 ml Q4HP PRN PO DYSPEPSIA; Start 04/23/17 at 14:15; Stop 05/23/17 at 14:14 Apixaban (Eliquis) 5 mg BID PO Last administered on 04/28/17 08:48; Start 04/23/17 at 21:00; Stop 05/05/17 at 23:55 Atorvastatin Calcium (Lipitor) 80 mg DAILY PO Last administered on 04/28/17 08 :49; Start 04/24/17 at 09:00; Stop 05/24/17 at 08:59 Bisacodyl (Dulcolax Tab) 10 mg DAILYPRN PRN PO CONSTIPATION; Start 04/27/17 at 10:30; Stop 05/27/17 at 10:29 Diltiazem HCl (Cardizem Cd) 120 mg DAILY PO Last administered on 04/28/17 08: 49; Start 04/24/17 at 09:00; Stop 05/24/17 at 08:59 Diltiazem HCl (Cardizem Cd) 180 mg DAILY PO Last administered on 04/28/17 08: 49; Start 04/24/17 at 09:00; Stop 05/24/17 at 08:59 Home Med (Med Rec Complete!) ASDIRECTED XX ; Start 04/23/17 at 17:30; Stop 04/23/17 at 17:30; Status DC Levetiracetam (Keppra) 500 mg BID PO Last administered on 04/28/17 08:48; Start 04/23/17 at 21:00; Stop 05/23/17 at 20:59 Magnesium Hydroxide (Milk Of Magnesia) 30 ml DAILYPRN PRN PO CONSTIPATION; Start 04/23/17 at 14:15; Stop 05/23/17 at 14:14 Phenytoin (Dilantin) 100 mg BID PO Last administered on 04/28/17 08:50; Start 04/23/17 at 21:00; Stop 04/29/17 at 23:55 Phenytoin (Dilantin) 100 mg DAILY@0600 PO ; Start 04/30/17 at 06:00; Stop 04/06 at 05:59 Sodium Biphosphate/ Sodium Phosphate (Fleet Enema) 1 ea DAILYPRN PRN [place] CONSTIPATION; Start 04/23/17 at 14:15; Stop 05/23/17 at 14:14 KIZZY GIL MD Apr 28, 2017 15:46
[2017-04-28 20:00] VITALS: BP 143/70
[2017-04-29 06:00] VITALS: BP 138/83
[2017-04-29] MEDS: diltiaZEM **CD** 180 MG CAP PO SCH (08:29)
[2017-04-29] MEDS: APIXABAN 5 MG TAB (ELIQUIS) PO SCH ×2 (08:30→20:54)
[2017-04-29] MEDS: levETIRAcetam 250MG TABLET (KEPPRA) PO SCH ×2 (08:30→20:54)
[2017-04-29] MEDS: PHENYTOIN ER 100 MG CAP PO SCH ×2 (08:30→20:54)
[2017-04-29] MEDS: ATORVASTATIN 20 MG TAB PO SCH (08:30)
[2017-04-29] MEDS ORDERED: KEPP1TAB PO (12:14)
[2017-04-29] MEDS ORDERED: ATOR80TA59 PO (12:14)
[2017-04-29] MEDS ORDERED: ELIQ5TAB PO (12:14)
[2017-04-29] MEDS ORDERED: DILA100C PO (12:14)
[2017-04-29] MEDS ORDERED: DILT300C43 PO (12:14)
--- NOTE | 2017-04-29 12:49 | IPNPDOC ---
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 Patient with dysarthria, dysphasia, aphasia, dysmetria of right upper extremity and some right-sided ataxia they're affecting his dominant right side. Patient currently in physical, occupational and speech therapies working on these deficits. Patient does note some anxiousness and that when he becomes anxious that his performance especially in word finding and speech clarity and fluency markedly decrease at those time. Similarly right upper and lower extremity placement which affects safety and function and mobility and ADLs respectively will also decline. Otherwise at this time patient without complaints. ALLERGIES: See Below MEDICATIONS: Reviewed, see below. OBJECTIVE: VITAL SIGNS: Please see below. PHYSICAL EXAMINATION: GENERAL: Well-nourished well-developed late middle-age white male who is alert and well oriented with notable improvement in his dysarthria since Wednesday. HEENT: Mild right facial droop and tongue deviation which have also improved since Wednesday. Extraocular motions are intact. CARDIOVASCULAR: Irregularly irregular with 2/4 bilateral radial pulses about 60' s bpm. LUNGS: All ennis clear to auscultation. ABDOMEN: Benign with normal bowel sounds in all quadrants. NEUROLOGICAL: Patient is alert and oriented 4. Speech with no dysarthria during most of my visit today. Memory is good. Motor still some dysmetria but markedly improved from Wednesday for both the upper and lower extremity on the right. However when distracted or stress this increases and patient's safety be comes more compromised. SKIN: Grossly intact. LABORATORY DATA: Reviewed. Please see below. MICROBIOLOGY: Please see below. IMAGING: No new images. DVT prophylaxis ordered?: Mike. ASSESSMENT AND PLAN: 1. Rehabilitation of left CVA with right dominant side sensorimotor deficits, aphasia, dysphasia and dysarthria: Patient has been showing significant gains in the course of treatment with physical, occupational and speech therapies since admission on Wednesday04/23/17 patient is particularly improved on his mobility and ADLs though some elements of the ataxia/dysmetria markedly increase whenever patient gets worried her anxious which compromises some of his safety and level of function. Therefore, I feel patient needs a bit of overtraining in this, especially to increase his confidence and decrease a anxiety that could put him in a more dangerous position if discharged to soon. Patient with some apprehension about trial in the apartment. 2. Atrial fibrillation: Rate is being well controlled along with blood pressure. Eliquis will be used for clot prevention. 3. Seizure prophylaxis: Patient is progressing off of Dilantin and at this time seems to tolerate Keppra without problems. There have been no signs of a seizure activity since admission to [facility]. REHAB. TEAM ROUNDS: Patient is modified independent to independent in most activities, then if stressed the level drops. Patient still drops level of function and his level of safety is less whenever his is anxious or distracted ( This is improving). He will need ongoing PT/OT/PRODUCTION CONTROL PLANNER as outpatient after discharge. Plan to discharge to home plan for Wednesday04/30/17. Please see attached therapy notes below. TIME SPENT: Chart Review, examination and documentation require greater than 25 minutes. Patient: Kennedy Bernstein : 1950 Age/Sex: 66/M Unit#: [id number] Room/Bed: M4147/01 User: Yuliya Jacome OT OT Date: 04/28/17 14:12 Type: OT Progress Time In * 08:40 Time Out * 09:35 OT Treatment Time-Minutes * 55 mins Type of Therapy Provided * Individual Unit * Acute Inpatient Rehab Pain Comment * No c/o pain Subjective * Pt standing in room, talking with RN upon OT arrival. Pt reports he completed dressing, toileting, and grooming independently this am prior to OT with no concerns noted. Cognition * Within Normal Limits Sit to Stand * Independent Stand to Sit * Independent Bed to Chair * Independent Chair to Bed * Independent Functional Transfer Notes: * Independent with all ADL transfers. Dressing-Upper Body * Independent Dressing-Lower Body * Independent Grooming * Independent Toileting * Independent Eating * Independent ADL Training Note * Pt completed all ADLs prior to tx independently. No AD/DME required. A. Eating (include only those with PO intake): * 06.Independent Eating Comments: * See ADL note. B. Oral Hygiene (includes gums in edentulous pts): * 06.Independent Oral Hygiene Comments: * See ADL note. C. Toileting Hygiene (not transfers): * 06.Independent Toileting Hygiene Comments: * See ADL note. F. Upper Body Dressing (includes bra, not hospital gown): * 06.Independent Upper Body Dressing Comments: * See ADL note. G. Lower Body Dressing (includes briefs and knee braces): * 06.Independent Lower Body Dressing Comments: * See ADL note. H. Putting on/taking off footwear (includes TEDS and AFO): * 06.Independent Putting on/taking off footwear Comments: * See ADL note. Sit-Static * G Sit-Dynamic * G Stand-Static * G Stand-Dynamic * G Balance Training Note * Independent with all functional mobility. OT Intervention Note * RN present to deliver medications. Pt then completed med management independently. He was able to state what medications he does take and why, as well as open all packages and take meds. Pt then ambulated to kitchen. Pt reports he does not complete cooking/cleaning tasks at home mostly, but does occasionally assist with washing dishes. Pt completed activity to wash/dry and put away dishes in kitchen, independently with no rest break required. Pt then ambulated to gym independently and completed BUE ergometer in standing with moderate resistance to increase strength and endurance for ADL routines. Pt ambulated back to room independently and returned to chair at bedside. Pt encouraged to remain OOB to increase overall strength and endurance to return to PLOF. All needs met. OT Goal Note * Pt has met all OT goals at this time. Discharge Recommendations * Home Safe for discharge at this time * Yes Patient: Kennedy Bernstein : 1950 Age/Sex: 66/M Unit#: [id number] Room/Bed: M4147/01 User: Rhina Edmondson, PT PT Date: 04/29/17 12:39 Type: PT Progress Note Time In * 08:55 Time Out * 10:00 PT Treatment Time-Minutes * 65 mins Type of Therapy Provided * Individual Precautions * Fall Unit * Acute Inpatient Rehab Pain Start of Session * 0 Pain End of Session * 0 Pain Comment * Patient denies pain. Subjective * Patient is agreeable to PT session. Patient was seated in bedside chair prior to session. Cognition * Within Normal Limits Cognition Comments * A&Ox3 Supine to Sit * Not Tested Sit to Supine * Not Tested Rolling * Not Tested Bed Mobility Notes * OOB throughout session. Sit to Stand * Independent Stand to Sit * Independent Bed to Chair * Independent Chair to Bed * Independent Toilet/Commode * Independent Transfer Training Notes * Independent with all transfers without AD Sit-Static * G Sit-Dynamic * G Stand-Static * G Stand-Dynamic * G Balance Training Note * Sitting balance assessed sitting at EOB, standing balance assessed standing without AD. Balance activities: DL stance on airex: 1 min eyes open WBOS, 1 min eyes closed WBOS, 1 min eyes open feet together, 1 min eyes closed feet together. Trampoline toss: 4# ball x10 reps WBOS, x10 reps narrow [place] Ambulation Distance * 1000 Feet Ambulation Level of Assist * Modified Independent Assistive Device Used * None Gait Training Note * Patient ambulated 1000 ft without AD. Patient ambulated over thresholds, carpeting, negotiating objects and people. Patient demonstrates no LOB with ambulation, good humberto. Wheelchair Mobility Level of Assist * Not Tested Number of Stairs Completed * 19 Stairs Railing * Yes Railing Side * Left Level of Assist for Stairs * Modified Independent Stair Training Note * Patient demonstrated mod I with stair negotiation. Patient demonstrates reciprocal gait with stair negotiation. Patient demonstrates no LOB, no safety concerns. A. Roll Left and Right: * 88.Not Attempted B. Sit to Lying: * 88.Not Attempted C. Lying to Sitting on Side of Bed: * 88.Not Attempted D. Sit to Stand: * 06.Independent E. Chair/Jjv-et-Ojztn Transfer: * 06.Independent F. Toilet Transfer: * 88.Not Attempted G. Car Transfer: * 88.Not Attempted H. Does the patient walk?: * 2. Yes I. Walk 10 Feet: * 06.Independent J. Walk 50' with Two Turns: * 06.Independent K. Walk 150 Feet: * 06.Independent L. Walking 10' on uneven surfaces: * 06.Independent Walking 10' on uneven surfaces Comments: * carpeting and ramps M. 1 Step (curb): * 06.Independent N. 4 Steps (with or without railing): * 06.Independent O. 12 Steps (with or without railing): * 06.Independent P. Picking up Object from the Floor (from a standing): * 06.Independent Picking up Object from the Floor (from standing) Comments: * Patient picked up multiple hurdles and cones this date. Q. Does the patient use a w/c (other than just transport): * 0. No Lower Extremity Exercised * Bilateral Other Sitting Exercises * Nu-Step x7 minutes at L6 Number of Reps Sitting * 15-20 Reps Standing Exercises * Hamstring Curls * Other Other Standing Exercises * cone tapping alternating feet 2x20 reps. Therapeutic Exercises Note * Therapeutic Activity: Obstacle course: hurdles x6, 2 feet apart, cones x7 2 feet apart for weaving. Patient performed x5 reps. Patient also picked up all objects off the floor with no LOB. Some difficulty with cone weaving but improves with repetitions. Tandem walking 10 ft x4. PT Interventions * Gait Training * Therapeutic Excercise * Functional Training * Bed Mobility * Balance Activities * Safety/Precautions * HEP * Pt./Family Education * D/C Needs * Neuro Re-Education PT Progress Note * Patient demonstrates improvements in balance activities this date. Patient demonstrates good safety awareness. no LOB throughout activities. Improved accuracy with cone tapping this session. Patient demonstrates all activity with no immediate adverse effects. Patient was seated in room with call quiles in reach following PT session. Discharge Recommendations * Home Safe for discharge at this time * Yes Patient: Kennedy Bernstein Jordan : 1950 Age/Sex: 66/M Unit#: [id number] Room/Bed: M4147/01 User: St Xochitl Little Date: 04/29/17 12:50 Type: ST Mora-Motor Speech Exerc... Exercise Education Label * Multisyllabic Drill Oral Motor Exercise Over-Articulation Range of Motion Exercises * Other Motor Speech Exercise use of audio recording for biofeedback, pacing * Level of Assistance Independent Minimum Assist * Level of Assistance Comment Independent w/ HEP for OME's. Self-monitors& implements overartic/slow rate * Tolerance Excellent * Therapeutic Exercise Yes Pt/Family Education * Therapeutic Exercise Comment Supervising PRODUCTION CONTROL PLANNER present, agrees w/ tx and outcomes. MS Sharifa, [facility]-[employer]NER. Allergies Coded Allergies: No Known Allergies (Unverified , 04/23/17) Vital Signs Vital Signs Date Time Temp Pulse Resp B/P (MAP) Pulse Ox O2 Delivery O2 Flow Rate FiO2 04/29/17 08:29 62 138/83 04/29/17 06:00 97.3 18 99 Room Air Current Medications Current Medications Current Medications Acetaminophen (Tylenol Tab) 650 mg Q6HP PRN PO PAIN OR TEMP > 101; Start at 14:15; Stop 05/23/17 at 14:14 Al Hydrox/Mg Hydrox/Simethicone (Mylanta) 30 ml Q4HP PRN PO DYSPEPSIA; Start 04/23/17 at 14:15; Stop 05/23/17 at 14:14 Apixaban (Eliquis) 5 mg BID PO Last administered on 04/29/17 08:30; Start 04/23/17 at 21:00; Stop 05/05/17 at 23:55 Atorvastatin Calcium (Lipitor) 80 mg DAILY PO Last administered on 04/29/17 08 :30; Start 04/24/17 at 09:00; Stop 05/24/17 at 08:59 Bisacodyl (Dulcolax Tab) 10 mg DAILYPRN PRN PO CONSTIPATION; Start 04/27/17 at 10:30; Stop 05/27/17 at 10:29 Diltiazem HCl (Cardizem Cd) 120 mg DAILY PO Last administered on 04/29/17 08: 30; Start 04/24/17 at 09:00; Stop 05/24/17 at 08:59 Diltiazem HCl (Cardizem Cd) 180 mg DAILY PO Last administered on 04/29/17 08: 29; Start 04/24/17 at 09:00; Stop 05/24/17 at 08:59 Home Med (Med Rec Complete!) ASDIRECTED XX ; Start 04/23/17 at 17:30; Stop 04/23/17 at 17:30; Status DC Levetiracetam (Keppra) 500 mg BID PO Last administered on 04/29/17 08:30; Start 04/23/17 at 21:00; Stop 05/23/17 at 20:59 Magnesium Hydroxide (Milk Of Magnesia) 30 ml DAILYPRN PRN PO CONSTIPATION; Start 04/23/17 at 14:15; Stop 05/23/17 at 14:14 Phenytoin (Dilantin) 100 mg BID PO Last administered on 04/29/17 08:30; Start 04/23/17 at 21:00; Stop 04/29/17 at 23:55 Phenytoin (Dilantin) 100 mg DAILY@0600 PO ; Start 04/30/17 at 06:00; Stop 04/06 at 05:59 Sodium Biphosphate/ Sodium Phosphate (Fleet Enema) 1 ea DAILYPRN PRN HI CONSTIPATION; Start 04/23/17 at 14:15; Stop 05/23/17 at 14:14 KIZZY GIL MD Apr 29, 2017 12:49
[2017-04-29 14:00] VITALS: BP 138/75
[2017-04-29 20:00] VITALS: BP 140/80
[2017-04-30 06:00] VITALS: BP 132/82
[2017-04-30] MEDS ORDERED: PHENYTOIN ER 100 MG CAP PO SCH (06:00)
[2017-04-30] MEDS: levETIRAcetam 250MG TABLET (KEPPRA) PO SCH (09:00)
[2017-04-30] MEDS: ATORVASTATIN 20 MG TAB PO SCH (09:00)
[2017-04-30] MEDS: diltiaZEM **CD** 180 MG CAP PO SCH (09:00)
[2017-04-30 09:01] VITALS: BP 132/82
[2017-04-30] MEDS: APIXABAN 5 MG TAB (ELIQUIS) PO SCH (09:01)
--- NOTE | 2017-05-01 16:16 | PMRDS ---
DATE OF ADMISSION: 04/23/2017 DATE OF DISCHARGE: 04/30/2017 DISCHARGE DIAGNOSIS: Rehabilitation of left basal ganglia and occipital lobe cerebrovascular accidents (CVAs) with right hemiparesis, hemisensory deficits on the right, ataxia, dysmetria, dysarthria, dysphagia and aphasia. 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 He was transferred to [facility] for potential neurosurgical intervention. The source of his CVAs is most likely his atrial fibrillation which is chronic, but the patient also has significant left internal carotid artery plaque. The patient was medically stabilized, and on 04/23/2017, the patient was transferred to [facility] Acute Rehab Unit for neurorehabilitation including physical, occupational and speech therapies. The patient's dysphagia had been markedly improved in his four-day admission at [facility], and had just been transferred to a regular diet with thin liquids; however, there was no supporting documentation and he was started on puree with nectar-thick liquids and then reassessed here and found to be relatively safe by speech therapy to return to a regular diet with thin liquids. The patient with no procedures performed during this admission. DIAGNOSTIC LABORATORY: Patient with potentially normal CBC with differential showing only a little bit of increase in myelocytes and immature granulocytes. Chemistry with chloride elevated at 111 and calcium reduced mildly at 8.6, but otherwise normal, and urinalysis showed trace ketones, 1+ blood, and trace leukocyte esterase with no bacteria on his admission. HOSPITAL COURSE: Patient admitted on 04/23/2017. As noted above, speech assessment of swallowing was performed, and the patient advanced to normal diet with thin liquids. In occupational therapy (OT), the patient showing standby assistance transfers and good minus level of balance on admission. Has now transitioned to independent transfers, good balance both sitting and standing for both static and dynamic, but lacking some confidence still. In physical therapy, the patient was felt only to be fair plus in his balance. He was able to ambulate with contact guard assistance 150 feet, but had some difficulty with some mobility and transfers with activities of daily living (ADLs) due to right sensory deficits, and progressed to good balance sitting and standing dynamics, independent in ambulation 250 feet. Independent with his home exercise program but still some right-sided body control deficits, especially whenever he gets anxious or with stress to them. Speech therapy, the patient with some notable dysarthria and word-finding difficulties, but fairly fluent aphasia, made marked improvement to a community level of speech except when, again, stressed. However, the patient became more aware of this and started demonstrating better control of his speech and clarify. No cognitive deficits were found. The patient was offered the opportunity for trial in the apartment, but declined. He is expressing his appreciation of the extra time as he has managed to overcome a lot of the anxiousness and the secondary dysfunction that crops up when he became anxious. DISCHARGE MEDICATIONS: - diltiazem 300 mg daily for cardiac blood pressure and rate control - Keppra 500 mg twice a day for seizure disorder and the patient is finishing out a course and transition of Dilantin, now on 100 mg daily for a week and then discontinue - atorvastatin 80 mg daily for cholesterol control, for left internal artery plaque and CVA prevention - Eliquis 5 mg twice a day for clot prevention secondary to atrial fibrillation COMPLICATIONS: None. DISCHARGE PLAN: The patient is discharged to home with , to resume outpatient physical, occupational and speech therapies. He will see his primary care, Dr. Dunn, within two weeks, and will followup with neurology at [facility] on 08/09/2017, and cardiology on 06/29/2017. TIME SPENT ON DISCHARGE: Greater than 35 minutes.
== END 2017-04-30 11:35 | disposition home or self-care (01) | DRG 57 ==
LOC: M PM&R 04-23 15:04
PROVIDERS: ADMIT Physical Medicine & Rehabilitation; ATTEND Physical Medicine & Rehabilitation
DX: I69.331 Monoplegia of upper limb following cerebral infarction affecting right dominant side (principal); I69.391 Dysphagia following cerebral infarction; I69.320 Aphasia following cerebral infarction; I69.322 Dysarthria following cerebral infarction; I69.393 Ataxia following cerebral infarction; I48.2 Chronic atrial fibrillation; G40.909 Epilepsy, unspecified, not intractable, without status epilepticus; Z85.828 Personal history of other malignant neoplasm of skin; Z79.01 Long term (current) use of anticoagulants; Z79.899 Other long term (current) drug therapy